=== PATIENT | female | born 1960 | race Two or more races ===

== ENCOUNTER → 2023-09-11 | Outpatient (CLI) | payer BC ==
[2023-09-11 12:53] LABS: Albumin 4.4 g/dL (3.2-4.8)
[2023-09-11 12:54] LABS: Bilirubin, Direct 0.4 mg/dL (<0.3); Bilirubin, Total 1.1 mg/dL (0.2-1.0); Total Protein 7.1 g/dL (5.7-8.2)
[2023-09-11 13:09] LABS: Hepatitis B Surface Antigen Negative (Negative)
[2023-09-11 13:29] LABS: Hepatitis A Ab IgM Negative
[2023-09-11 13:30] LABS: Hepatitis B Core IgM Negative
[2023-09-11 13:31] LABS: Hepatitis C Antibody Negative (Negative)
== END | disposition home or self-care (01) ==
LOC: LAB 11:53
DX: R74.01 Elevation of levels of liver transaminase levels (principal)
CPT/HCPCS: 36415; 80076; 86705; 86709; 86803; 87340

== ENCOUNTER → 2024-09-06 | Outpatient (CLI) | payer BC ==
[2024-09-06 10:01] LABS: Basophils # (auto) 0.1 10 ^3/uL (0-0.2); Basophils % (auto) 1.1 % (0.0-2.0); Eosinophils # (auto) 0.2 10 ^3/uL (0-0.8); Eosinophils % (auto) 2.3 % (0.0-7.0); Hematocrit 43.5 % (36.0-46.0); Hemoglobin 15.4 g/dL (12.2-16.2); Lymphocytes # (auto) 2.1 10 ^3/uL (0.4-5.4); Lymphocytes % (auto) 31.5 % (10.0-50.0); Mean Corpuscular Hemoglobin 32.7 pg (28.0-32.0); Mean Corpuscular Hgb Conc. 35.4 g/dL (32.0-36.0); Mean Corpuscular Volume 92.2 fL (80.0-100.0); Monocytes # (auto) 0.4 10 ^3/uL (0-1.3); Monocytes % (auto) 6.1 % (0.0-12.0); Neutrophils # (auto) 3.9 10 ^3/uL (1.6-8.6); Nucleated Red Blood Cells % 0.1 %; Platelet Count (auto) 275 10^3/uL (140-450); Red Blood Cells 4.72 10^6/uL (4.0-5.20); Red Cell Distribution Width 13.1 % (11.8-14.3); White Blood Cell 6.6 10^3/uL (4.4-10.8)
[2024-09-06 10:39] LABS: Albumin 4.6 g/dL (3.2-4.8); Anion Gap 9 (5-15); Aspartate Aminotransferase 33 U/L (13-40); BUN/Creatinine Ratio 21.9 (10.0-20.0); Bilirubin, Total 0.9 mg/dL (0.2-1.0); Blood Urea Nitrogen 21 mg/dL (9-23); Carbon Dioxide 29 mmol/L (20-31); Chloride 104 mmol/L (98-107); Cholesterol 156 mg/dL (< 200); Sodium 142 mmol/L (136-145); Total Protein 7.3 g/dL (5.7-8.2); Triglycerides 135 mg/dL (< 150)
[2024-09-06 10:42] LABS: Alanine Aminotransferase 58 U/L (7-40); Glucose 118 mg/dL (74-106); HDL Cholesterol 38 mg/dL (40-59); LDL Cholesterol 108 mg/dL (< 100); Potassium 3.5 mmol/L (3.5-5.1)
[2024-09-06 10:45] LABS: Alkaline Phosphatase 73 U/L (46-116)
== END | disposition home or self-care (01) ==
LOC: LAB 09:27
PROVIDERS: ATTEND Nurse Practitioner Family
DX: I10 Essential (primary) hypertension (principal); E78.5 Hyperlipidemia, unspecified; E66.9 Obesity, unspecified; Z00.01 Encounter for general adult medical examination with abnormal findings
CPT/HCPCS: 36415; 80053; 80061; 82306; 84443; 85025

== ENCOUNTER → 2024-11-16 | Outpatient (CLI) | payer BC | END | disposition home or self-care (01) | LOC: LAB 08:30 | PROVIDERS: ATTEND Registered Nurse | DX: N39.0 Urinary tract infection, site not specified (principal); R30.0 Dysuria | CPT/HCPCS: 87086 ==